=== PATIENT | female | born 1955 | race Hispanic/Latino ===

== ENCOUNTER 2017-07-19 15:20 | Observation (INO) | payer MEDICARE ==
[~2017-07-19] VITALS: Ht 152.4 cm; Wt 109.7 kg
[2017-07-19] MEDS ORDERED: IPRATROPIUM/ALBUTEROL SULFATE 3 ML SOLUTION IH ONE ×2 (16:03→23:56)
[2017-07-19] MEDS ORDERED: METHYLPREDNISOLONE SOD SUCC 40MG/ML 1ML ONE (16:22)
[2017-07-19 16:31] LABS: APPEARANCE,URINE Clear (CLEAR); BILIRUBIN,URINE Negative (NEGATIVE); COLOR,URINE Yellow (YELLOW); GLUCOSE, URINE (UA) Negative (NEGATIVE); KETONES,URINE Negative (NEGATIVE); LEUKOCYTE ESTERASE ,URINE Large (NEGATIVE); NITRATE,URINE Negative (NEGATIVE); OCCULT BLOOD,URINE Negative (NEGATIVE); PROTEIN,URINE Negative (NEGATIVE); UROBILINOGEN,URINE 0.2 mg/dL (0.2-1.0)
[2017-07-19 16:32] LABS: BASOPHILS % (AUTO) 0.7 % (0.0-5.0); EOSINOPHILS % (AUTO) 2.8 % (0.0-8.0); HEMATOCRIT 33.8 % (36-48); LYMPHOCYTES % (AUTO) 35.8 % (21.0-51.0); MEAN CORPUSCULAR HEMOGLOBIN 29.9 pg (27.0-33.0); MEAN CORPUSCULAR HGB CONC 33.7 g/dL (32.0-36.0); MEAN CORPUSCULAR VOLUME 88.9 fL (79-99); MONOCYTES % (AUTO) 11.1 % (3.0-13.0); NEUTROPHILS % (AUTO) 49.6 % (40.0-77.0); NUCLEATED RED BLOOD CELLS 0.1 % (0.0-0.19); PLATELET COUNT (AUTO) 242 K/uL (130-400); RED BLOOD CELL COUNT(AUTO) 3.81 MIL/uL (4.00-5.50); RED CELL DISTRIBUTION WIDTH 15.1 % (11.0-15.5); WHITE BLOOD COUNT (AUTO) 3.7 K/uL (4.8-10.8)
[2017-07-19 16:38] LABS: POTASSIUM 4.7 mmol/L (3.5-5.1)
[2017-07-19 16:39] LABS: INR 0.96 (0.85-1.15); PARTIAL THROMBOPLASTIN TIME 25.5 SEC (26.3-35.5); PROTHROMBIN TIME 9.9 SEC (9.6-11.6)
[2017-07-19 16:42] LABS: ALBUMIN 3.5 g/dL (3.5-5.0); BILIRUBIN,TOTAL 0.5 mg/dL (0.2-1.0); TOTAL PROTEIN, SERUM 8.3 g/dL (6.0-8.3)
[2017-07-19 16:45] LABS: BACTERIA,URINE Rare /HPF (None Seen); RBC,URINE 0-1 /HPF (0-1); SQUAMOUS EPITHELIAL CELL,UR Few /HPF (0-2); TRANSITIONAL EPI CELLS,URINE Rare /HPF (None Seen)
[2017-07-19 17:03] LABS: B-TYPE NATRIURETIC PEPTIDE 62 pg/mL (0-100)
[2017-07-19] MEDS ORDERED: OSELTAMIVIR PHOSPHATE 75 MG CAP ONE (18:04)
[2017-07-19] MEDS ORDERED: LEVOFLOXACIN 500 MG/D5W 100 ML 100 ML ONE (19:38)
[2017-07-19] MEDS ORDERED: HYDRALAZINE HCL 20 MG/ML VIAL ONE (23:19)
[2017-07-20] MEDS ORDERED: LORA1TAB3 PO (00:16)
[2017-07-20] MEDS ORDERED: TRAZ-185 PO (00:16)
[2017-07-20 00:40] VITALS: BP 178/79
[2017-07-20] MEDS ORDERED: LEVOFLOXACIN 500 MG/D5W 100 ML 100 ML IV SCH (00:45)
[2017-07-20] MEDS ORDERED: POTASSIUM CHLORIDE 20MEQ/100ML 100 ML IV PRN (00:45)
[2017-07-20] MEDS ORDERED: DEXTROSE 50%-WATER 50 ML DISP.SYRIN IV PRN (00:45)
[2017-07-20] MEDS ORDERED: ACETAMINOPHEN-CODEINE 300/30MG TAB PO PRN ×2 (00:45)
[2017-07-20] MEDS ORDERED: LIDOCAINE HCL-MPF 1% 2ML VIAL IVP PRN (00:45)
[2017-07-20] MEDS ORDERED: POTASSIUM CHLORIDE 10% ELIXIR 20 MEQ/15 ML UDCUP PO PRN (00:45)
[2017-07-20] MEDS ORDERED: GLUCAGON 1MG KIT 1 MG ML IM PRN (00:45)
[2017-07-20] MEDS ORDERED: POTASSIUM CHLORIDE 20 MEQ ERTAB PO PRN (00:45)
[2017-07-20] MEDS ORDERED: LORAZEPAM 1 MG TABLET ONE (00:55)
[2017-07-20] MEDS ORDERED: TRAZODONE HCL 50 MG TAB ONE (00:55)
[2017-07-20 01:00] VITALS: BP 164/74
[2017-07-20] MEDS: METHYLPREDNISOLONE SOD SUCC 125MG/2ML VIAL IVP SCH ×2 (02:15→08:48)
[2017-07-20] MEDS ORDERED: METHYLPREDNISOLONE SOD SUCC 40MG/ML 1ML ONE (03:32)
[2017-07-20 04:42] VITALS: BP 150/74
[2017-07-20 06:20] LABS: BASOPHILS % (AUTO) 0.2 % (0.0-5.0); HEMATOCRIT 34.6 % (36-48); LYMPHOCYTES % (AUTO) 11.9 % (21.0-51.0); MEAN CORPUSCULAR HGB CONC 32.9 g/dL (32.0-36.0); MEAN CORPUSCULAR VOLUME 88.3 fL (79-99); MONOCYTES % (AUTO) 0.9 % (3.0-13.0); PLATELET COUNT (AUTO) 245 K/uL (130-400); RED BLOOD CELL COUNT(AUTO) 3.92 MIL/uL (4.00-5.50); RED CELL DISTRIBUTION WIDTH 14.7 % (11.0-15.5)
[2017-07-20] MEDS ORDERED: HYDRALAZINE HCL 20 MG/ML VIAL IV PRN ×2 (06:30→08:00)
[2017-07-20 06:40] LABS: CREATININE 1.2 mg/dL (0.5-1.5); POTASSIUM 4.2 mmol/L (3.5-5.1)
[2017-07-20] MEDS ORDERED: IPRATROPIUM/ALBUTEROL SULFATE 3 ML SOLUTION IH ONE (07:01)
[2017-07-20] MEDS ORDERED: INSULIN HUMULIN R 100 UNIT/ML 3ML SQ SCH (07:30)
[2017-07-20 08:33] VITALS: BP 184/95
[2017-07-20] MEDS ORDERED: OSELTAMIVIR PHOSPHATE 75 MG CAP PO SCH (09:00)
[2017-07-20] MEDS ORDERED: LORAZEPAM 1 MG TABLET PO SCH (09:00)
[2017-07-20] MEDS ORDERED: FAMOTIDINE 20MG TAB 20 MG TAB PO SCH (09:00)
[2017-07-20] MEDS ORDERED: OSEL75 PO (10:32)
[2017-07-20] MEDS ORDERED: IPRATROPIUM/ALBUTEROL SULFATE 3 ML SOLUTION IH SCH (12:00)
[2017-07-20 12:01] VITALS: BP 138/70
[2017-07-20] MEDS ORDERED: TRAZODONE HCL 50 MG TAB PO SCH (21:00)
== END 2017-07-20 11:59 | disposition home or self-care (01) ==
LOC: EDH 15:20 → EDHIP 15:21 → 3AH 22:18
PROVIDERS: ADMIT Internal Medicine; ATTEND Internal Medicine
DX: J09.X2 Influenza due to identified novel influenza A virus with other respiratory manifestations (principal); J10.1 Influenza due to other identified influenza virus with other respiratory manifestations; I10 Essential (primary) hypertension; E11.9 Type 2 diabetes mellitus without complications; E78.5 Hyperlipidemia, unspecified; M06.9 Rheumatoid arthritis, unspecified; Z90.710 Acquired absence of both cervix and uterus
CPT/HCPCS: 36415 ×2; 71046; 80048; 80053; 81001; 82948 ×2; 83880; 85025 ×2; 85610; 85730; 87040 ×2; 87186; 87804 ×2; 94640 ×4; 94664; 96372; 96374; 99285; A4510; G0378 ×21; J0360; J1815; J1956; J2920 ×2; J2930